=== PATIENT | female | born 1945 | race Caucasian/White ===

== ENCOUNTER 2017-12-01 08:00 | Day surgery (SDC) | payer MEDICARE, OTHER ==
[~2017-12-01 08:00] MED LIST: Cefuroxime 10 MG/ML SYRINGE EYELF SCH; Lidocaine 1% PF 2 ML SDV INJECT SCH; Pilocarpine 4% Ophth Soln 15 ML Bot EYELF SCH
[2017-12-01] MEDS: Polymyxin B/Trimethoprim 10 ML Bottle EYELF SCH ×3 (08:17→11:19)
[2017-12-01] MEDS: Brimonidine 0.2% Ophth Soln 5 ML Bottle EYELF SCH ×3 (08:21→11:19)
[2017-12-01] MEDS: Phenylephrine 2.5% Ophth Soln 2 ML Bot EYELF SCH ×5 (08:26→10:59)
--- NOTE | 2017-12-01 08:45 | PCM.PREANE ---
Preanesthetic Assessment - Anesthesia/Transfusion/Family Hx Anesthesia History: No Prior Anesthesia Family History of Anesthesia Reaction: No Transfusion History: No Prior Transfusion(s) - Review of Systems General: No Symptoms Pulmonary: Other (ASHTHMA, CONTROLLED WITH INHALER) Cardiovascular: Other (HTN, STATES HAS A BAD VALVE AND ON COUMADIN FOR THAT ) Gastrointestinal: No Symptoms Neurological: Other (ATRTHRITIS) Other: Reports: Easy Bleeding, Easy Bruising, Diabetes (NON INSULIN, ORAL AGENTS , PATIENT STATES SHE RUNS 175-200) - Physical Assessment NPO Status Date: 11/30/17 NPO Status Time: 18:00 Pulse: 84 O2 Sat by Pulse Oximetry: 96 Respiratory Rate: 16 Blood Pressure: 142/60 Vital Signs: Last Vital Signs Temp 36.2 C 12/01/17 08:15 Pulse 84 12/01/17 08:15 Resp 16 12/01/17 08:15 BP 142/60 H 12/01/17 08:15 Pulse Ox 96 12/01/17 08:15 Height: 1.65 m Weight: 101.151 kg ASA Class: 3 Mental Status: Alert & Oriented x3 Airway Class: Mallampati = 2 Dentition: Reports: Normal Dentition (LOWER), Dentures (UPPER) Thyro-Mental Finger Breadths: 3 Mouth Opening Finger Breadths: 3 ROM/Head Extension: Full Lungs: Clear to Auscultation, Normal Respiratory Effort Cardiovascular: Regular Rate, Regular Rhythm, Murmurs - Allergies Allergies/Adverse Reactions: Allergies Allergy/AdvReac Type Severity Reaction Status Date / Time No Known Allergies Allergy Verified 11/26/17 12:02 - Blood Blood Available: No Product(s) Available: None - Anesthesia Plan Pre-Op Medication Ordered: None - Acknowledgements Anesthesia Type Planned: MAC Pt an Appropriate Candidate for the Planned Anesthesia: Yes Alternatives and Risks of Anesthesia Discussed w Pt/Guardian: Yes Pt/Guardian Understands and Agrees with Anesthesia Plan: Yes PreAnesthesia Questionnaire - CURRENT (IN HOUSE) MEDS Current Meds: Current Medications Brimonidine Tartrate (Alphagan 0.2% Ophth Soln) 0 ml EYELF ASDIRECTED MARGI Stop: 12/01/17 18:00 Last Admin: 12/01/17 08:21 Dose: 1 drop Cefuroxime Sodium (Zinacef) 0 mg EYELF ASDIRECTED MARGI Stop: 12/01/17 18:00 Lidocaine HCl (Xylocaine-Mpf 1%) 10 ml INJECT ASDIRECTED MARGI Stop: 12/01/17 18:00 Phenylephrine HCl (Rony-Synephrine 2.5% Ophth Soln) 0 ml EYELF ASDIRECTED MARGI Stop: 12/01/17 18:00 Last Admin: 12/01/17 08:26 Dose: 1 drop Pilocarpine HCl (Pilocar 4% Ophth Soln) 0 ml EYELF ASDIRECTED MARGI Stop: 12/01/17 18:00 Polymyxin/Trimethoprim Sulfate (Polytrim Ophth Soln) 0 ml EYELF ASDIRECTED MARGI Stop: 12/01/17 18:00 Last Admin: 12/01/17 08:17 Dose: 1 drop Tetracaine HCl (Tetracaine 0.5% Steri-Unit [place]) 0 ml EYELF ASDIRECTED MARGI Stop: 12/01/17 18:00 Tropicamide (Mydriacyl 1% Ophth Soln) 0 ml EYELF ASDIRECTED MARGI Stop: 12/01/17 18:00 Last Admin: 12/01/17 08:30 Dose: 1 drop
[2017-12-01] MEDS: Tetracaine HCl/PF 0.5% 4 ML Bottle EYELF SCH ×2 (10:42→11:09)
--- NOTE | 2017-12-01 11:21 | PCM48HPAN ---
Post Anesthesia Note - EVALUATION WITHIN 48HRS OF ANESTHETIC Vital Signs in Normal Range: Yes Patient Participated in Evaluation: Yes Respiratory Function Stable: Yes Airway Patent: Yes Cardiovascular Function Stable: Yes Hydration Status Stable: Yes Pain Control Satisfactory: Yes Nausea and Vomiting Control Satisfactory: Yes Mental Status Recovered: Yes Pulse Rate: 72 SaO2: 99 Resp Rate: 16 Temperature: 36 C Blood Pressure: 155/62
== END 2017-12-01 11:31 | disposition home or self-care (01) ==
LOC: JD.SDS 08:00
PROVIDERS: ATTEND Ophthalmology
DX: H26.9 Unspecified cataract (principal); J45.909 Unspecified asthma, uncomplicated; E78.00 Pure hypercholesterolemia, unspecified; I10 Essential (primary) hypertension; E11.36 Type 2 diabetes mellitus with diabetic cataract; Z87.891 Personal history of nicotine dependence; Z79.01 Long term (current) use of anticoagulants; Z79.4 Long term (current) use of insulin; Z79.899 Other long term (current) drug therapy
CPT/HCPCS: 66984; C1780; J0697; A9270-GY